=== PATIENT | male | born 1970 | race Two or more races ===

== ENCOUNTER 2020-07-19 18:13 | Inpatient (IN) | payer MEDICAID ==
[~2020-07-19] VITALS: Ht 167.6 cm; Wt 86.9 kg
[2020-07-19] VITALS (9 sets, daily range): BP systolic 136–167; BP diastolic 89–101
[2020-07-19] MEDS ORDERED: ASPirin 81 mg TAB PO ONE (18:45)
[2020-07-19] MEDS ORDERED: MORPHINE SULFATE 4 MG/ML SYR/VIAL IV ONE ×2 (18:45→19:15)
[2020-07-19] MEDS ORDERED: ONDANSETRON HCL 4 MG/2 ML VIAL IV ONE (18:45)
[2020-07-19] MEDS ORDERED: NITROGLYCERIN 0.4 MG SL TAB SL ONE ×2 (19:00→19:26)
[2020-07-19] MEDS ORDERED: NITROGLYCERIN 50MG/250ML 250 ML IV ONE (19:15)
[2020-07-19 19:18] LABS: Basophils # (auto) 0.1 10 ^3/uL (0-0.2); Basophils % (auto) 0.5 % (0.0-2.0); Eosinophils # (auto) 0.1 10 ^3/uL (0-0.8); Eosinophils % (auto) 0.9 % (0.0-7.0); Hematocrit 46.2 % (41.0-53.0); Hemoglobin 16.3 g/dL (13.5-17.5); Mean Corpuscular Hemoglobin 32.7 pg (28.0-32.0); Mean Corpuscular Hgb Conc. 35.2 g/dL (32.0-36.0); Mean Corpuscular Volume 92.8 fL (80.0-100.0); Monocytes % (auto) 7.3 % (0.0-12.0); Neutrophils # (auto) 9.4 10 ^3/uL (1.6-8.6); Neutrophils % (auto) 69.3 % (37.0-80.0); Platelet Count (auto) 251 10^3/uL (140-450); Red Blood Cells 4.98 10^6/uL (4.5-5.90); White Blood Cell 13.6 10^3/uL (4.4-10.8)
[2020-07-19] MEDS ORDERED: NITROGLYCERIN 0.4 MG SL TAB SL PRN ×2 (19:30→22:15)
[2020-07-19] MEDS ORDERED: MORPHINE SULF INJ 2 MG/ML SYRINGE 1ML IV PRN ×2 (19:30→19:45)
[2020-07-19] MEDS ORDERED: IOHEXOL 350 MG/ML 100ML IJ ONE ×2 (19:33→21:28)
[2020-07-19] MEDS ORDERED: LIDOCAINE 2%HCL (LOCAL ANESTH.) INJ 20ML MDV ONE (19:33)
[2020-07-19] MEDS ORDERED: SODIUM CHL 0.9% 50 ML ONE (19:38)
[2020-07-19] MEDS ORDERED: fentaNYL CITRATE 100 MCG/2 ML VL ONE ×2 (19:38→21:13)
[2020-07-19] MEDS ORDERED: MIDAZOLAM HCL 1MG/1ML-2 ML VIAL ONE ×2 (19:38→21:13)
[2020-07-19] MEDS ORDERED: ANGIOMAX 250 MG VIAL IV ONE (19:38)
[2020-07-19 19:39] LABS: Chloride 107 mmol/L (98-107); INR 0.96 (0.9-1.15); Partial Thromboplastin Time 33.5 sec (23.0-31.2); Potassium 3.7 mmol/L (3.5-5.1); Sodium 139 mmol/L (136-145)
[2020-07-19] MEDS ORDERED: VERAPAMIL 2.5MG/ML INJ 2ML VIAL IV ONE (19:41)
[2020-07-19] MEDS ORDERED: HEPARIN SODIUM (PORCINE) 5000 UNITS/ML 1ML VIAL ONE ×2 (19:41→19:48)
[2020-07-19] MEDS ORDERED: traMADol HCL 50 MG TAB PO PRN (19:45)
[2020-07-19] MEDS ORDERED: PROMETHAZINE HCL 25 MG/ML 1ML IV PRN (19:45)
[2020-07-19] MEDS ORDERED: TEMAZEPAM 15 MG CAP PO PRN (19:45)
[2020-07-19] MEDS ORDERED: ACETAMINOPHEN 500 MG TAB PO PRN (19:45)
[2020-07-19] MEDS ORDERED: ATROPINE SULF 1 MG/10ml SYR ONE (19:46)
[2020-07-19 19:48] LABS: Alanine Aminotransferase 46 U/L (16-61); Alkaline Phosphatase 71 U/L (45-117); Anion Gap 7 (5-15); Aspartate Aminotransferase 26 U/L (15-37); Bilirubin, Total 0.5 mg/dL (0.2-1.0); Blood Urea Nitrogen 20 mg/dL (7-18); Calcium 9.1 mg/dL (8.5-10.1); Carbon Dioxide 25 mmol/L (21-32); GFR African American 101 mL/min; GFR Non-African American 83 mL/min; Glucose 94 mg/dL (74-106)
[2020-07-19] MEDS ORDERED: HEPARIN SODIUM (PORCINE) 5000 UNITS/ML 1ML VIAL IV ONE (20:00)
[2020-07-19] MEDS ORDERED: POTASSIUM CHL 20MEQ/100ML 0 ML IV ONE (20:23)
[2020-07-19] MEDS ORDERED: POTASSIUM CHL 20 Meq TABLET PO ONE (20:45)
[2020-07-19] MEDS ORDERED: diphenhdrAMINE HCL 50 MG/1 ML VL ONE (20:58)
[2020-07-19] MEDS ORDERED: TICAGRELOR 90 MG TAB ONE (21:25)
[2020-07-19] MEDS ORDERED: METOPROLOL TARTRATE 25 MG TAB PO SCH (22:00)
[2020-07-19] MEDS ORDERED: ATORVASTATIN 20 MG TAB PO SCH (22:00)
[2020-07-19] MEDS ORDERED: ALPRAZolam 0.5 MG TAB PO PRN (22:15)
[2020-07-19] MEDS ORDERED: ONDANSETRON HCL 4 MG/2 ML VIAL IV PRN (22:15)
[2020-07-19] MEDS: ENOXAPARIN SOD 80 MG/0.8ML SYRINGE SC SCH (22:49)
[2020-07-19] MEDS: MORPHINE SULF INJ 2 MG/ML SYRINGE 1ML IV PRN (22:50)
[2020-07-20] VITALS (88 sets, daily range): BP systolic 120–153; BP diastolic 73–92
[2020-07-20] MEDS: MORPHINE SULF INJ 2 MG/ML SYRINGE 1ML IV PRN (00:18)
[2020-07-20] MEDS ORDERED: SOD CHL 0.45% 1,000 ML IV SCH (02:30)
[2020-07-20] MEDS: HYDROmorphone HCL 2 MG/ML VL IV PRN ×2 (03:39→06:13)
[2020-07-20 04:12] LABS: Albumin 3.5 g/dL (3.4-5.0); Calcium 8.4 mg/dL (8.5-10.1)
[2020-07-20 04:19] LABS: BUN/Creatinine Ratio 20.9; Bilirubin, Total 0.4 mg/dL (0.2-1.0); Total Protein 6.9 g/dL (6.4-8.2)
[2020-07-20] MEDS ORDERED: ASPirin 81 mg TAB PO SCH (10:00)
[2020-07-20] MEDS ORDERED: ENALAPRIL MALEATE 2.5 MG TAB PO SCH (10:00)
[2020-07-20] MEDS ORDERED: CARVEDILOL 3.125 MG TAB PO SCH (10:00)
[2020-07-20] MEDS ORDERED: LISINOPRIL 20 MG TAB PO SCH (10:00)
[2020-07-20] MEDS ORDERED: PANTOPRAZOLE 40 MG TAB PO SCH (10:00)
[2020-07-20] MEDS: ASPirin-EC 81 mg tab PO SCH (10:28)
[2020-07-20] MEDS: TICAGRELOR 90 MG TAB PO SCH ×2 (10:30→22:02)
[2020-07-20] MEDS: PANTOPRAZOLE 40 MG/10 ML VIAL INJ IV SCH (10:31)
[2020-07-20] MEDS: ENOXAPARIN SOD 80 MG/0.8ML SYRINGE SC SCH (10:31)
[2020-07-20] MEDS: SOD CHL 0.45% 1,000 ML IV SCH (12:00)
[2020-07-20] MEDS ORDERED: LISINOPRIL 20 MG TAB PO ONE (13:45)
[2020-07-20 13:50] LABS: Basophils # (auto) 0 10 ^3/uL (0-0.2); Basophils % (auto) 0.3 % (0.0-2.0); Eosinophils # (auto) 0 10 ^3/uL (0-0.8); Hematocrit 41.9 % (41.0-53.0); Hemoglobin 14.5 g/dL (13.5-17.5); Lymphocytes # (auto) 0.9 10 ^3/uL (0.4-5.4); Lymphocytes % (auto) 5.5 % (10.0-50.0); Mean Corpuscular Hemoglobin 32.3 pg (28.0-32.0); Mean Corpuscular Hgb Conc. 34.6 g/dL (32.0-36.0); Mean Corpuscular Volume 93.3 fL (80.0-100.0); Monocytes # (auto) 0.9 10 ^3/uL (0-1.3); Neutrophils # (auto) 13.9 10 ^3/uL (1.6-8.6); Neutrophils % (auto) 88.2 % (37.0-80.0); Platelet Count (auto) 214 10^3/uL (140-450); Red Blood Cells 4.49 10^6/uL (4.5-5.90); White Blood Cell 15.7 10^3/uL (4.4-10.8)
[2020-07-20 14:16] LABS: BUN/Creatinine Ratio 18.3; Calcium 8.4 mg/dL (8.5-10.1); Magnesium 2.3 mg/dL (1.6-2.6); Potassium 3.9 mmol/L (3.5-5.1)
[2020-07-20 18:33] LABS: Amphetamine Screen, Urine NEGATIVE (NEGATIVE); Barbiturate Scree,Urine NEGATIVE (NEGATIVE); Benzodiazephine Screen, Urine POSITIVE (NEGATIVE); Cannabinoid Screen, Urine NEGATIVE (NEGATIVE); Cocaine Screen, Urine NEGATIVE (NEGATIVE); Opiate Scree,Urine NEGATIVE (NEGATIVE); Phencyclidine Screen, Urine NEGATIVE (NEGATIVE)
[2020-07-20] MEDS ORDERED: ATORVASTATIN 20 MG TAB PO SCH (22:00)
[2020-07-20] MEDS: CARVEDILOL 3.125 MG TAB PO SCH (22:30)
[2020-07-21 05:16] VITALS: BP 130/81
[2020-07-21 06:00] VITALS: BP 129/95
[2020-07-21 06:51] LABS: Albumin 3.3 g/dL (3.4-5.0); Calcium 8.7 mg/dL (8.5-10.1); Potassium 3.5 mmol/L (3.5-5.1)
[2020-07-21 06:55] LABS: BUN/Creatinine Ratio 21.1; Bilirubin, Total 0.9 mg/dL (0.2-1.0)
[2020-07-21] MEDS: SOD CHL 0.45% 1,000 ML IV SCH (08:00)
[2020-07-21] MEDS ORDERED: ENOXAPARIN SOD 80 MG/0.8ML SYRINGE SC SCH (10:00)
[2020-07-21] MEDS ORDERED: LISINOPRIL 20 MG TAB PO SCH (10:00)
[2020-07-21] MEDS: CARVEDILOL 3.125 MG TAB PO SCH (10:00)
[2020-07-21] MEDS ORDERED: TICA90TA PO (10:13)
[2020-07-21] MEDS ORDERED: LISI-646 PO (10:13)
[2020-07-21] MEDS ORDERED: CAR125T PO (10:13)
[2020-07-21] MEDS ORDERED: PANT40TA2 PO (10:13)
[2020-07-21] MEDS ORDERED: ASPI-378 PO (10:13)
[2020-07-21] MEDS ORDERED: ATO40T PO (10:13)
[2020-07-21] MEDS ORDERED: FUROSEMIDE 20 MG/2 ML VIAL IV ONE (10:15)
[2020-07-21] MEDS ORDERED: POTASSIUM CHL 20 Meq TABLET PO ONE (10:15)
[2020-07-21] MEDS: PANTOPRAZOLE 40 MG/10 ML VIAL INJ IV SCH (10:40)
[2020-07-21] MEDS: ASPirin-EC 81 mg tab PO SCH (10:41)
[2020-07-21] MEDS: TICAGRELOR 90 MG TAB PO SCH (10:41)
[2020-07-21 11:39] VITALS: BP 129/95
[2020-07-21 13:00] VITALS: BP 150/99
== END 2020-07-21 13:55 | disposition home or self-care (01) | DRG 174 ==
LOC: ER 18:13 → TELE 18:14 → ICU WEST 22:00 → TELE-CENTR 07-20 23:31
PROVIDERS: ADMIT Internal Medicine; ATTEND Internal Medicine
PROC: 027337Z Dilation of Coronary Artery, Four or More Arteries with Four or More Drug-eluting Intraluminal Devices, Percutaneous Approach (ICD-10-PCS; principal; 2020-07-19)
PROC: 4A023N7 Measurement of Cardiac Sampling and Pressure, Left Heart, Percutaneous Approach (ICD-10-PCS; 2020-07-19)
PROC: B2111ZZ Fluoroscopy of Multiple Coronary Arteries using Low Osmolar Contrast (ICD-10-PCS; 2020-07-19)
PROC: B2151ZZ Fluoroscopy of Left Heart using Low Osmolar Contrast (ICD-10-PCS; 2020-07-19)
DX: I21.3 ST elevation (STEMI) myocardial infarction of unspecified site (principal); E78.5 Hyperlipidemia, unspecified; Z95.5 Presence of coronary angioplasty implant and graft; I16.0 Hypertensive urgency; F17.210 Nicotine dependence, cigarettes, uncomplicated; I25.10 Atherosclerotic heart disease of native coronary artery without angina pectoris; R73.03 Prediabetes; I11.0 Hypertensive heart disease with heart failure; I50.33 Acute on chronic diastolic (congestive) heart failure; R65.10 Systemic inflammatory response syndrome (SIRS) of non-infectious origin without acute organ dysfunction; Z82.49 Family history of ischemic heart disease and other diseases of the circulatory system; Z91.19 Patient's noncompliance with other medical treatment and regimen; E66.9 Obesity, unspecified; Z68.30 Body mass index [BMI] 30.0-30.9, adult; F12.90 Cannabis use, unspecified, uncomplicated; Z87.11 Personal history of peptic ulcer disease
CPT/HCPCS: 36415; 71045; 71046; 80048; 80053; 80061; 80307; 83036; 83735; 83880; 84443; 84484; 85025; 85379; 85610; 85730; 87081; 93005; 93306; 99152; 99153; 99291; C1874; C1887; C9113; G0378; J2250; J2405; J3480